=== PATIENT | female | born 1950 | race Caucasian/White ===

== ENCOUNTER 2019-11-21 08:04 | Outpatient (CLI) | payer MEDICARE, OTHER, SELFPAY ==
--- NOTE | 2019-11-21 08:20 | MM_ITS ---
WS: [id number] BILATERAL DIGITAL SCREENING MAMMOGRAM WITH CAD CLINICAL INFORMATION: SCREENING HISTORY: Screening mammogram. No current complaints. COMPARISON: TECHNIQUE: Bilateral CC and MLO. FINDINGS: The breast are composed of extremely dense tissue, which can limit the detection of small underlying mass lesions. No suspicious focal mass, asymmetry, calcifications, or architectural distortion. No ev idence of malignancy. Lucent centered calcifications. Punctate calcifications. 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
== END 2019-11-21 08:05 | disposition home or self-care (01) ==
LOC: RADSHAW 08:11
PROVIDERS: PCP Nurse Practitioner; Visit Provider Nurse Practitioner
DX: Z12.31 Encounter for screening mammogram for malignant neoplasm of breast (principal)
CPT/HCPCS: 77067

== ENCOUNTER 2020-03-09 09:11 | Outpatient (CLI) | payer MEDICARE, OTHER, SELFPAY ==
--- NOTE | 2020-03-09 09:15 | US_ITS ---
WS: [id number] RIGHT UPPER QUADRANT ULTRASOUND HISTORY: ELEVATED LFT'S/ABNORMAL FINDINGS OF BLOOD CHEMISTRY COMPARISON: None available. Liver: 15.5 cm in length. Normal size liver. No bile duct dilatation or mass. Gallbladder: Normally distended gallbladder with no stones or wall thickening. CBD: 0.4 cm Pancreas: Normal size and echogenicity. Right kidney: 12.3 cm in length. Normal size and echogenicity. No hydronephrosis or mass. Aorta and IVC: Unremarkable abdominal aorta and IVC. No ascites. US/US abdomen limited [id number] IMPRESSION: Normal RIGHT upper quadrant ultrasound.
== END 2020-03-09 09:12 | disposition home or self-care (01) ==
PROVIDERS: PCP Nurse Practitioner; Visit Provider Nurse Practitioner
DX: R94.5 Abnormal results of liver function studies (principal); R79.9 Abnormal finding of blood chemistry, unspecified
CPT/HCPCS: 76705

== ENCOUNTER 2021-01-10 09:38 | Outpatient (CLI) | payer MEDICARE, OTHER, SELFPAY ==
--- NOTE | 2021-01-10 09:42 | MM_ITS ---
WS: [id number] BILATERAL DIGITAL SCREENING MAMMOGRAPHY WITH CAD CLINICAL INFORMATION: SCREENING HISTORY: Screening mammogram. No current complaints. COMPARISON: November 21, 2019 TECHNIQUE: Bilateral CC and MLO views. FINDINGS: The breasts are composed of heterogeneous fibroglandular density tissue, which can limit the detectio n of small underlying mass lesions. Punctate and lucent centered calcifications. shelter stability of the isodense nodule deep posterior and medial left breast measuring 10 mm. No suspicious mass, asymmetry, calcifications, or architectural distortion. No evidence of malignancy . MM/[place] [id number] IMPRESSION: BI-RADS: 2-Benign FOLLOW UP: 1 Year Follow-up Recommend return to annual screening mammography.
== END 2021-01-10 09:39 | disposition home or self-care (01) ==
LOC: RADSHAW 09:40
PROVIDERS: PCP Nurse Practitioner; Visit Provider Nurse Practitioner
DX: Z12.31 Encounter for screening mammogram for malignant neoplasm of breast (principal)
CPT/HCPCS: 77067

== ENCOUNTER 2022-02-16 11:41 | Outpatient (CLI) | payer MEDICARE, SELFPAY ==
--- NOTE | 2022-02-16 11:45 | MM_ITS ---
WS: [id number] BILATERAL SCREENING DIGITAL TOMOSYNTHESIS MAMMOGRAM WITH CAD HISTORY: SCREENING COMPARISON: 01/10/2021, 11/21/2019, 09/10/2018 Bilateral CC and MLO views with tomosynthesis and synthetic mammography submitted. Computer aided det ection analyzed. Breast composition: The breasts are heterogeneously dense, which may obscure small masses. No suspici ous masses, microcalcifications or architectural distortion. Well-circumscribed 12 mm long-term stabi lity of the nodule in the posterior LEFT breast near 9:00. Benign calcifications in each breast. MM/[place] [id number] IMPRESSION: BI-RADS: 2-Benign FOLLOW UP: 1 Year Follow-up
== END 2022-02-16 11:42 | disposition home or self-care (01) ==
LOC: RAD 11:41
PROVIDERS: PCP Nurse Practitioner; Visit Provider Nurse Practitioner
DX: Z12.31 Encounter for screening mammogram for malignant neoplasm of breast (principal)
CPT/HCPCS: 77063; 77067

== ENCOUNTER → 2022-02-20 09:21 | Outpatient (BNVA) | payer MEDICARE, SELFPAY | PROVIDERS: PCP Family Medicine; Visit Provider Family Medicine | DX: E03.9 Hypothyroidism, unspecified (principal); E78.2 Mixed hyperlipidemia; Z76.89 Persons encountering health services in other specified circumstances | CPT/HCPCS: 80053; 80061; 84439; 84443; 85025 ==

== ENCOUNTER → 2022-11-06 08:08 | Outpatient (BNVA) | payer MEDICARE, OTHER, SELFPAY | PROVIDERS: PCP Family Medicine; Visit Provider Family Medicine | DX: E07.9 Disorder of thyroid, unspecified (principal); E03.9 Hypothyroidism, unspecified | CPT/HCPCS: 80061; 84439; 84443 ==

== ENCOUNTER 2023-03-05 10:10 | Outpatient (CLI) | payer MEDICARE, OTHER, SELFPAY ==
--- NOTE | 2023-03-05 10:18 | MM_ITS ---
WS: [id number] BILATERAL SCREENING DIGITAL TOMOSYNTHESIS MAMMOGRAM WITH CAD HISTORY: SCREENING COMPARISON: 02/16/2022, 01/10/2021 and 08/30/2017 Bilateral CC and MLO views with tomosynthesis and synthetic mammography submitted. Computer aided det ection analyzed. Breast composition: There are scattered areas of fibroglandular density. No suspicious masses, microc alcifications or architectural distortion. Stable 10 mm mass in the medial posterior LEFT breast at t he nipple line near 9:00. This mass has been described on several prior examinations. IMPRESSION: MM/[place] [id number] BI-RADS: 2-Benign FOLLOW UP: 1 Year Follow-up
== END 2023-03-05 10:11 | disposition home or self-care (01) ==
LOC: RAD 10:11
PROVIDERS: PCP Family Medicine; Visit Provider Family Medicine
DX: Z12.31 Encounter for screening mammogram for malignant neoplasm of breast (principal)
CPT/HCPCS: 77063; 77067

== ENCOUNTER → 2023-12-04 08:53 | Outpatient (BNVA) | payer MEDICARE, OTHER, SELFPAY | PROVIDERS: PCP Family Medicine | DX: E03.9 Hypothyroidism, unspecified (principal); E55.9 Vitamin D deficiency, unspecified; E78.2 Mixed hyperlipidemia | CPT/HCPCS: 80053; 80061; 82306; 84443; 84481; 85025 ==

== ENCOUNTER 2023-12-10 12:45 | Outpatient (CLI) | payer MEDICARE, OTHER, SELFPAY ==
--- NOTE | 2023-12-10 13:00 | XR_ITS ---
WS: [id number] DEXA (DUAL ENERGY X-RAY ABSORPTIOMETRY) Bone mineral density was performed using a [employer] machine. HISTORY: screening COMPARISON: 09/10/2018 Lumbar spine BMD (L1-L4): 0.947 g/cm2 T score: -1.9 Z score: -0.1 Total hip BMD: Left: 0.762 g/cm2. T score: -1.9 Z score: -0.1 Right: 0.789 g/cm2. T score: -1.7 Z score: 0.1 10 year probability of a major osteoporotic fracture is 14.0%. Compared to the prior study from 09/10/2018. Lumbar spine bone mineral density has increased by 5.0%. Bilateral hips bone mineral density has decreased by 2.5%. XR/XR DEXA axial skeleton* [id number] IMPRESSION: OSTEOPENIA based upon the WHO classification for females. Significant increase in bone mineral density within the lumbar spine since the prior study. Significant decrease of bone mineral density within the hips since the prior st zhen.
== END 2023-12-10 12:46 | disposition home or self-care (01) ==
LOC: RAD 12:45
PROVIDERS: PCP Family Medicine
DX: Z13.820 Encounter for screening for osteoporosis (principal); M85.80 Other specified disorders of bone density and structure, unspecified site; E55.9 Vitamin D deficiency, unspecified
CPT/HCPCS: 77080; 80053; 80061; 82306; 84443; 84481; 85025

== ENCOUNTER 2024-03-28 10:16 | Outpatient (CLI) | payer MEDICARE, OTHER, SELFPAY ==
--- NOTE | 2024-03-28 10:18 | MM_ITS ---
WS: [id number] Bilateral screening 3D tomosynthesis digital mammogram, 03/28/2024 10:26 AM Clinical Data: SCREENING Comparison: 03/05/2023, 02/16/2022, 01/10/2021, 11/21/2019, 09/10/2018, 08/30/2017, 07/31/2016, 06/03/2015, 05/22/2014, 05/02/2013, 04/01/2012, 02/27/2011, 01/31/2010, 11/23/2008, 11/04/2008, 09/16/2007, 08/27/2006. Findings: No spiculated masses or clustered calcifications are seen. There are no secondary signs of carcinoma . MM/MM [facility] BI tomosynthesis [id number] Impression: Negative bilateral mammogram unchanged. Recommend annual screening mammograms. BIRADS: 1 - Negative. FOLLOW UP: 1 Year Follow-up DENSITY: There are scattered areas of fibroglandular density. The CAD schedule checker was used
== END 2024-03-28 10:17 | disposition home or self-care (01) ==
LOC: RAD 10:17
PROVIDERS: PCP Family Medicine; Visit Provider Family Medicine
DX: Z12.31 Encounter for screening mammogram for malignant neoplasm of breast (principal)
CPT/HCPCS: 77063; 77067

== ENCOUNTER 2024-08-11 16:33 | Outpatient (CLI) | payer MEDICARE, OTHER, SELFPAY ==
--- NOTE | 2024-08-11 16:43 | XR_ITS ---
WS: [id number] XR lumbar spine 2-3V* [id number] REASON FOR EXAM: back pain FINDINGS: Overall decreased bone density. Moderate levoscoliosis with mild straightening of the lordosis. No significant vertebral body compression deformity. Mild to moderate vertebral body osteophytosis L1-L5. Mild narrowing of the L2-L3 disc space with moderate to significant narrowing of the L5-S1 disc space. Moderate anterolisthesis of L3 in relation to L2. Mild to moderate degenerative arthropathy in the facet joints L3-S1. XR/XR lumbar spine 2-3V* [id number] IMPRESSION: Degenerative spondylosis of the lumbar spine as above. Progressive compared to 10/16/2018.
== END 2024-08-11 16:34 | disposition home or self-care (01) ==
LOC: RAD 16:35
PROVIDERS: PCP Family Medicine; Visit Provider Registered Nurse Neonatal Intensive Care
DX: M47.897 Other spondylosis, lumbosacral region (principal); M51.369 Other intervertebral disc degeneration, lumbar region without mention of lumbar back pain or lower extremity pain; M51.379 Other intervertebral disc degeneration, lumbosacral region without mention of lumbar back pain or lower extremity pain; M43.16 Spondylolisthesis, lumbar region; M41.86 Other forms of scoliosis, lumbar region
CPT/HCPCS: 72100

== ENCOUNTER 2024-09-18 14:40 | Outpatient (RCR) | payer MEDICARE, OTHER, SELFPAY | END 2024-10-11 23:59 | disposition home or self-care (01) | LOC: SPT 14:40 | PROVIDERS: PCP Family Medicine; Visit Provider Family Medicine | DX: M54.50 Low back pain, unspecified (principal) | CPT/HCPCS: 97110; 97161 ==

== ENCOUNTER 2024-10-12 05:00 | Outpatient (RCR) | payer MEDICARE, OTHER, SELFPAY | END 2024-10-31 09:06 | disposition home or self-care (01) | LOC: SPT 05:00 | PROVIDERS: PCP Family Medicine; Visit Provider Family Medicine | DX: M54.50 Low back pain, unspecified (principal) | CPT/HCPCS: 97110 ==

== ENCOUNTER → 2024-11-27 15:07 | Outpatient (BNVA) | payer MEDICARE, OTHER, SELFPAY | PROVIDERS: PCP Family Medicine; Visit Provider Family Medicine | DX: M47.816 Spondylosis without myelopathy or radiculopathy, lumbar region (principal); E78.2 Mixed hyperlipidemia; E89.0 Postprocedural hypothyroidism; M85.89 Other specified disorders of bone density and structure, multiple sites | CPT/HCPCS: 80053; 80061; 84439; 84443; 84481; 85025 ==

== ENCOUNTER 2025-04-01 08:59 | Outpatient (CLI) | payer MEDICARE, OTHER, SELFPAY ==
--- NOTE | 2025-04-01 09:05 | MM_ITS ---
WS: [id number] BILATERAL SCREENING DIGITAL TOMOSYNTHESIS MAMMOGRAM WITH CAD HISTORY: SCREENING COMPARISON: 03/28/2024, 03/05/2023 Bilateral CC and MLO views with tomosynthesis and synthetic mammography submitted. Computer aided detection analyzed. Breast composition: The breasts are heterogeneously dense, which may obscure small masses. No suspicious masses, microcalcifications or architectural distortion. Asymmetries and calcifications in each breast are stable over multiple prior years. MM/MM [facility] tomosynthesis [id number] IMPRESSION: BI-RADS: 2 - Benign FOLLOW UP: 1 Year Follow-up
== END 2025-04-01 09:00 | disposition home or self-care (01) ==
LOC: RAD 09:00
PROVIDERS: PCP Family Medicine; Visit Provider Family Medicine
DX: Z12.31 Encounter for screening mammogram for malignant neoplasm of breast (principal); R92.333 Mammographic heterogeneous density, bilateral breasts; N64.89 Other specified disorders of breast
CPT/HCPCS: 77063; 77067